=== PATIENT | male | born 1940 | race Caucasian/White ===

== ENCOUNTER 2018-05-20 10:03 | Emergency (ER) | payer OTHER ==
[~2018-05-20] VITALS: Ht 182.9 cm; Wt 90.7 kg
[2018-05-20 10:16] VITALS: BP 132/75
[2018-05-20] MEDS ORDERED: LET TOPICAL SOLN 5 ML TOP ONE (11:30)
== END 2018-05-20 12:11 | disposition home or self-care (01) ==
LOC: ER 10:03
DX: S51.812A Laceration without foreign body of left forearm, initial encounter (principal); E11.9 Type 2 diabetes mellitus without complications; E78.5 Hyperlipidemia, unspecified; I10 Essential (primary) hypertension; Z86.73 Personal history of transient ischemic attack (TIA), and cerebral infarction without residual deficits; X58.XXXA Exposure to other specified factors, initial encounter; Y93.89 Activity, other specified; Y99.8 Other external cause status; Y92.89 Other specified places as the place of occurrence of the external cause
CPT/HCPCS: 93005

== ENCOUNTER 2018-05-22 17:12 | Emergency (ER) | payer OTHER ==
[~2018-05-22] VITALS: Ht 182.9 cm; Wt 99.8 kg
[2018-05-22 17:34] VITALS: BP 151/83
== END 2018-05-22 21:00 | disposition left against medical advice (07) ==
LOC: ER 17:12
DX: Z48.01 Encounter for change or removal of surgical wound dressing (principal); Z53.21 Procedure and treatment not carried out due to patient leaving prior to being seen by health care provider